=== PATIENT | male | born 1970 | race Two or more races ===

== ENCOUNTER 2017-03-16 10:37 | Emergency (ER) | payer MEDICAID ==
[2017-03-16 10:59] VITALS: BP 156/108
== END 2017-03-16 11:52 | disposition home or self-care (01) ==
LOC: ED 10:37
DX: S05.02XA Injury of conjunctiva and corneal abrasion without foreign body, left eye, initial encounter (principal); R03.0 Elevated blood-pressure reading, without diagnosis of hypertension; X58.XXXA Exposure to other specified factors, initial encounter; Y99.8 Other external cause status; Y93.89 Activity, other specified; Y92.89 Other specified places as the place of occurrence of the external cause

== ENCOUNTER 2018-01-04 14:48 | Emergency (ER) | payer MEDICAID ==
[~2018-01-04] VITALS: Ht 157.5 cm; Wt 85.3 kg
[2018-01-04 14:56] VITALS: BP 130/94; Ht 157.5 cm; Wt 85.3 kg
== END 2018-01-04 16:53 | disposition home or self-care (01) ==
LOC: ED 14:48
DX: S61.211A Laceration without foreign body of left index finger without damage to nail, initial encounter (principal); I10 Essential (primary) hypertension; E11.9 Type 2 diabetes mellitus without complications; W26.8XXA Contact with other sharp object(s), not elsewhere classified, initial encounter; Y93.89 Activity, other specified; Y92.89 Other specified places as the place of occurrence of the external cause; Y99.8 Other external cause status
CPT/HCPCS: J2001